=== PATIENT | male | born 1975 | race Two or more races ===

== ENCOUNTER 2022-12-05 19:08 | Emergency (ER) | payer OTHER ==
[~2022-12-05] VITALS: Ht 182.9 cm; Wt 108.0 kg
[2022-12-05] MEDS ORDERED: CEPH-510 PO (21:24)
[2022-12-05 22:40] VITALS: BP 138/86
== END 2022-12-06 03:35 | disposition home or self-care (01) ==
LOC: ER 19:12
DX: S01.112A Laceration without foreign body of left eyelid and periocular area, initial encounter (principal); J45.909 Unspecified asthma, uncomplicated; I10 Essential (primary) hypertension; W20.8XXA Other cause of strike by thrown, projected or falling object, initial encounter; Y93.89 Activity, other specified; Y92.89 Other specified places as the place of occurrence of the external cause; Y99.8 Other external cause status
CPT/HCPCS: 12013